=== PATIENT | male | born 1950 | race Hispanic/Latino ===

== ENCOUNTER → 2019-01-21 | Day surgery (SDC) | payer MEDICARE, BC ==
--- NOTE | 2019-01-20 02:47 | Pre Op History & Physical ---
DATE OF SURGERY: January 21, 2019. CHIEF COMPLAINT: Left-sided sensorineural hearing loss. HISTORY OF PRESENT ILLNESS: This 68-year-old male has a sudden loss of his hearing in the left ear since December 09, 2018. The patient denies any recent upper respiratory tract infection. He denies any tinnitus or vertigo. The patient has no trauma to the area. The patient does wear hearing aids in both ears and finds that the left ear has been a lot worse since that day. An audiogram that was done on December 27, 2018 by his speech and hearing clinic director showed that the patient has left profound sensorineural hearing loss with 0% discrimination and severe sensorineural hearing loss on the right side with speech discrimination of 10%. MRI of the skull base that was performed showed no intracranial abnormality and the IAC were normal. REVIEW OF SYSTEMS: Showed no recent cardiovascular, respiratory, or GI problem. PAST MEDICAL HISTORY: The patient has a history of CVA and TIA about 20 years ago. PAST SURGICAL HISTORY: He has previous C-spine surgery and previous endoscopic sinus surgery, and knee surgery. ALLERGIES: NO KNOWN ALLERGY TO MEDICATION. MEDICATIONS: He is on hydrocodone for back problem and Duragesic patch and on Plavix. SOCIAL HISTORY: Nonsmoker, nondrinker. FAMILY HISTORY: Noncontributory. PHYSICAL EXAMINATION: VITAL SIGNS: On examination, the patient's vital signs were within normal limits. HEENT: Ear exam showed normal tympanic membranes bilaterally. Nasal exam showed no obvious abnormality. Oropharynx and oral cavity show no obvious abnormality. NECK: Showed no lymph node or thyroid palpable. CHEST: Showed good air entry bilaterally. CARDIOVASCULAR: Showed S1, S2. No murmur noted. TERRAZZO TILE [employer]KER: Cranial nerves II through XII were within normal limits. ASSESSMENT AND PLAN: Mr. Gillette has left profound sensorineural hearing loss, which has been worse since November of 2018. The sensorineural hearing loss versus autoimmune problem cannot be ruled out. The suggested treatment is myringotomy and tubes in the left ear with Decadron instillation and other necessary procedure. After discussion with the patient, he has elected that he wanted to have bilateral myringotomy and tubes and possible Decadron in both ears and other necessary procedure. Complication of procedure includes, but not limited to bleeding, infection, TM perforation, persistent drainage in the ear, hearing loss, persistent recurrence of the problem. The alternative will be continued observation of myringotomy and tubes in the office setting. The myringotomy tubes in the office setting while Decadron instillation transtympanic with a syringe and needle. The patient has been advised to stop his Plavix at least 5 days before surgery. He has elected to undergo surgical procedure. MD MANDI Fisher/ODETTE /[id number]
[~2019-01-21] MED LIST: DEXAMETHASONE PHOS 24 MG/ML 10ML VIAL IV ONE; DEXAMETHASONE SOD PHOS INJ 4 MG/ML VIAL ONE; FENTANYL CITRATE/PF 100MCG/2 ML INJ ONE; FENTANYL PATCH TD; FISH OIL 1,2001 EAC6 PO; FLONASE IH; LIDOCAINE HCL 2% LOCAL INJ 5 ML SDV VIAL INJ ONE; LISINOPRIL PO; NORCO 10-325 T1 EACH; OFLOXACIN 0.3% (OTIC SOL) 5 ML BTL ONE; ONDANSETRON HCL INJ 2MG/ML 2ML 2 MG/ML VIAL ONE; PLAVIX75 MG PO; PROPOFOL IV EMULSION 10 MG/ML 20 ML VIAL ONE; SEVOFLURANE INHAL SOLN 250 ML PEN BTL ONE; SUPER B COMPLE1 EACH PO; VITAMIN D32000 UNI1 PO
[2019-01-21 08:22] LABS: BASOPHILS % 0.2 % (0.0-1.0); EOSINOPHILS # (AUTO) 0.1 (0.0-0.4); EOSINOPHILS % 1.8 % (0.0-6.0); HEMOGLOBIN 14.7 g/dL (14.0-18.0); LYMPHOCYTES # (AUTO) 1.4 (1.0-3.2); LYMPHOCYTES % 21.9 % (18.0-39.1); MEAN CORPUSCULAR HEMOGLOBIN 30.6 pg (28-32); MEAN CORPUSCULAR HGB CONC 33.4 g/dL (31-35); MEAN CORPUSCULAR VOLUME 91.5 fL (81-99); MONOCYTES # (AUTO) 0.5 (0.2-0.8); MONOCYTES % 7.5 % (4.4-11.3); NEUTROPHILS # (AUTO) 4.3 (2.1-6.9); NEUTROPHILS % 68.4 % (38.7-80.0); PLATELET COUNT 197 x10e3/uL (140-360); RED BLOOD COUNT 4.81 x10e6/uL (4.3-5.7); RED CELL DISTRIBUTION WIDTH 13.2 % (11.7-14.4)
--- NOTE | 2019-01-21 08:48 | Diagnostic Imaging Report ---
EXAMINATION: CHEST 2 VIEWS INDICATION: Pre-operative COMPARISON: None FINDINGS: LINES/TUBES:None LUNGS:The lungs are well-inflated. No focal consolidation or pulmonary edema. PLEURA:No pleural effusion or pneumothorax. MEDIASTINUM:The cardiomediastinal silhouette appears normal in size and shape. Atherosclerotic calcifications of the thoracic aorta. BONES/SOFT TISSUES:No acute osseous injury. ABDOMEN:No free air under the diaphragm. IMPRESSION: No focal pneumonia or pulmonary edema. Signed by: Félix Najera MD on 01/21/2019 8:45 AM
[2019-01-21 10:19] VITALS: BP 145/89
--- NOTE | 2019-01-21 13:32 | Operative Report ---
DATE OF PROCEDURE: 01/21/2019 SURGEON: Kai Cardoso MD PREOPERATIVE DIAGNOSIS: Left sudden sensorineural hearing loss with hearing loss on both sides. POSTOPERATIVE DIAGNOSIS: Left sudden sensorineural hearing loss with hearing loss on both sides. PROCEDURE PERFORMED: Bilateral myringotomy and tube with Decadron to both middle ear cleft. ANESTHESIA: Timur Coronado MD. INDICATIONS: This 68-year-old male has few weeks history of sudden decrease in hearing in the left ear. The patient has longstanding history of sensorineural hearing loss in both ears. He noticed that the left ear is worse with tinnitus. He denies any vertigo. He always has a history of tinnitus, but this has intensified. MRI of the skull base was negative. Audiogram that was done showed the patient has severe hearing loss on the right side with profound sensorineural hearing loss on the left. It was decided that myringotomy and tubes to the left ear and other necessary procedure will be beneficial for him. After discussion with the patient, the patient has elected to have bilateral myringotomy and tubes in with potential of conduit for Decadron to the right ear if necessary. DESCRIPTION OF PROCEDURE: The patient was taken to the operating room, put under general anesthesia, and LMA airway created. The right ear was examined. The ear canal was debrided. Myringotomy was done in anterior-inferior quadrant. No effusion was noted in the middle ear cleft. Carlson grommet tube was inserted. Decadron was 24 mg/mL, 1 mL was instilled into the right middle ear cleft. The right ear was examined. The ear canal was debrided. A myringotomy was done in the anterior-inferior quadrant. No effusion was noted in the middle ear cleft. An Carlson grommet tube was inserted. Again, Decadron 24 mg/mL, 1 mL was instilled into the left middle ear cleft. The patient tolerated the above procedure well with minimal blood loss. He was able to be transferred to recovery room in stable condition. Kai Cardoso MD DKH/MODL /[id number]
== END | disposition home or self-care (01) ==
LOC: OR 06:54
PROVIDERS: ATTEND Otolaryngology Otolaryngology/Facial Plastic Surgery
DX: H91.22 Sudden idiopathic hearing loss, left ear (principal); H93.12 Tinnitus, left ear; M54.5 Low back pain; Z79.02 Long term (current) use of antithrombotics/antiplatelets; Z86.73 Personal history of transient ischemic attack (TIA), and cerebral infarction without residual deficits
CPT/HCPCS: 36415; 69436; 71046; 85025; 93005; J1100; J2001; J2405; J2704; J3010